=== PATIENT | male | born 1955 | race Two or more races ===

== ENCOUNTER 2021-07-26 04:43 | Inpatient (IN) | payer MEDICAID, OTHER ==
[~2021-07-26] VITALS: Ht 167.6 cm; Wt 82.6 kg
[2021-07-26 04:56] VITALS: BP 144/80
[2021-07-26] MEDS ORDERED: ACETAMINOPHEN 325 MG TAB PO ONE (06:00)
[2021-07-26] MEDS ORDERED: cefTRIAXone 1GM/50ML D5W 50 ML IV ONE (06:45)
[2021-07-26 08:19] LABS: Basophils # (auto) 0 10 ^3/uL (0-0.2); Basophils % (auto) 0.3 % (0.0-2.0); Eosinophils # (auto) 0 10 ^3/uL (0-0.8); Hematocrit 43.1 % (41.0-53.0); Hemoglobin 14.7 g/dL (13.5-17.5); Lymphocytes # (auto) 0.9 10 ^3/uL (0.4-5.4); Lymphocytes % (auto) 7.1 % (10.0-50.0); Mean Corpuscular Hgb Conc. 34.1 g/dL (32.0-36.0); Mean Corpuscular Volume 93.9 fL (80.0-100.0); Monocytes # (auto) 0.4 10 ^3/uL (0-1.3); Monocytes % (auto) 3.3 % (0.0-12.0); Neutrophils % (auto) 89.3 % (37.0-80.0); Nucleated Red Blood Cells % 0.1 %; Red Blood Cells 4.59 10^6/uL (4.5-5.90); White Blood Cell 12.3 10^3/uL (4.4-10.8)
[2021-07-26 08:36] LABS: Albumin 4.1 g/dL (3.4-5.0); Calcium 9.4 mg/dL (8.5-10.1); Potassium 3.9 mmol/L (3.5-5.1)
[2021-07-26 08:41] LABS: BUN/Creatinine Ratio 18.9; Bilirubin, Total 0.6 mg/dL (0.2-1.0); Total Protein 7.4 g/dL (6.4-8.2)
[2021-07-26 09:49] LABS: INR 1.03 (0.9-1.15); Partial Thromboplastin Time 24.5 sec (23.6-33.0)
[2021-07-26] MEDS ORDERED: LACTATED RINGER'S 500 ML IV ONE (10:15)
[2021-07-26 11:06] LABS: Urine Bacteria NONE SEEN /hpf (None Seen); Urine Blood 2+ /uL (Negative); Urine WBC 11 /hpf (0 - 3)
[2021-07-26] MEDS ORDERED: SODIUM CHLORIDE 0.9% 1,000 ML IV SCH (12:45)
[2021-07-26] MEDS ORDERED: MORPHINE SULFATE INJECTION 2 MG/ML SYRG IV PRN ×2 (12:45)
[2021-07-26] MEDS ORDERED: FUROSEMIDE 100 MG/10ML VIAL IV ONE (12:45)
[2021-07-26] MEDS ORDERED: KETOROLAC TROMETH 30 MG/ML 1ML VIAL IV ONE (12:45)
[2021-07-26] MEDS ORDERED: TAMSULOSIN HYDROCHLORIDE 0.4 MG CAP PO ONE (12:45)
[2021-07-26] MEDS ORDERED: NITROGLYCERIN 0.4 MG SL TAB SL PRN (12:45)
[2021-07-26] MEDS ORDERED: MANNITOL 20% SOLN 100 gm/500ml 500 ML IV ONE (12:45)
[2021-07-26] MEDS ORDERED: ONDANSETRON HCL 4 MG/2 ML VIAL IV PRN (12:45)
[2021-07-26] MEDS ORDERED: CIP500T PO (13:27)
[2021-07-26] MEDS ORDERED: TAM04C PO (13:27)
== END 2021-07-26 13:21 | disposition left against medical advice (07) | DRG 463 ==
LOC: ER 04:43 → EDBD 04:43 → OVERFLOW 04:44 → UNDOADMIN 12:33 → UNDODISIN 13:12 → OVERFLOW 14:11
PROVIDERS: ADMIT Hospitalist; ATTEND Hospitalist
DX: N13.6 Pyonephrosis (principal); C61 Malignant neoplasm of prostate; Z87.442 Personal history of urinary calculi; N40.0 Benign prostatic hyperplasia without lower urinary tract symptoms; Z53.29 Procedure and treatment not carried out because of patient's decision for other reasons
CPT/HCPCS: 36415; 71045; 74176; 80053; 81001; 82150; 83605; 83690; 83735; 84484; 85025; 85610; 85730; 87040; 87086; 93005; 96361; 96365; G0378; J0696